=== PATIENT | male | born 1975 | race Caucasian/White ===

== ENCOUNTER 2016-10-28 22:08 | Emergency (ER) | payer OTHER ==
[~2016-10-28] VITALS: Ht 172.7 cm; Wt 82.6 kg
[~2016-10-28 22:08] MED LIST: MOTRIN800 MG PO
[2016-10-28 22:23] VITALS: BP 111/72
[2016-10-28] MEDS ORDERED: IBUPROFEN600 M1 PO (22:48)
--- NOTE | 2016-10-28 23:10 | ED NECK/BACK PAIN COMPLAINT ---
History of Present Illness General Chief Complaint: Lower Extremity Problems Stated Complaint: PT HAS A BACK PAIN Source: patient, old records Exam Limitations: no limitations Vital Signs & Intake/Output Vital Signs & Intake/Output Vital Signs Date Time Temp Pulse Resp B/P B/P Pulse O2 O2 Flow FiO2 Mean Ox Delivery Rate 10/28 2236 99 Room Air 10/28 2222 98.1 79 16 111/72 97 Room Air ED Intake and Output 10/29 0000 10/28 1200 Intake Total Output Total Balance Patient 82.554 kg Weight Weight Reported by Patient Measurement Method Allergies Coded Allergies: NO KNOWN ALLERGIES (UNKNOWN 10/28/16) Reconcile Medications Cyclobenzaprine HCl 10 MG TABLET 1 TAB PO TID SCIATICA Ibuprofen 600 MG TABLET 1 TAB PO TID PAIN CONTROL (Reported) with food Ibuprofen (Motrin) 800 MG TAB 1 TAB PO 4 TIMES/DAY PRN PAIN Oxycodone HCl/Acetaminophen (Percocet 5-325 MG Tablet) 5 MG-325 MG TABLET 1 TAB PO TID SCIATICA Triage Note: 40M C/O R LOW BACK PAIN RADIATES DOWN R LEG. NO CVA TENDERNESS ON ASSESSMENT. 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 TAKING IBUPROFEN 600 WITHOUT RELIEF, LAST DOSE 3 HOURS AGO AND HOT PATCHES X4 DAYS WITHOUT RELIEF. DENIES SYMPTOMS. HAS HX KIDNEY STONES. GIVEN URINE CUP TO PROVIDE SAMPLE Triage Nurses Notes Reviewed? yes HPI: 40M PMH nephrolithiasis presenting with 5 days of severe lower back pain. Patient works in construction, was lifting heavy objects at work, the following morning woke up with severe right sided back pain radiating down right leg. Pain worse with movement. Denies extremity weakness, change in sensation, or paresthesias. Denies saddle paresthesia or incontinence. Went to PCP who prescribed Motrin with no improvement. Patient unable to sleep due to pain. Past History Travel History Traveled to [place] past 21 day No Medical History Any Pertinent Medical History? see below for history Neurological: NONE EENT: NONE Cardiovascular: NONE Respiratory: NONE Gastrointestinal: NONE Hepatic: NONE Renal: kidney stones Musculoskeletal: NONE Psychiatric: NONE Endocrine: NONE Surgical History Surgical History: none Psychosocial History What is your primary language Hungarian Tobacco Use: Refused to answer Family History Hx Contributory? No Review of Systems Review of Systems Constitutional: Reports: no symptoms. Eyes: Reports: no symptoms. Ears, Nose, Throat, Mouth: Reports: no symptoms. Respiratory: Reports: no symptoms. Cardiovascular: Reports: no symptoms. Gastrointestinal/Abdominal: Reports: no symptoms. Musculoskeletal: Reports: see HPI. Skin: Reports: no symptoms. Neurological/Psychological: Reports: no symptoms. All Other Systems: Reviewed and Negative Physical Exam Physical Exam General Appearance: well developed/nourished, mild distress Head: atraumatic Eyes: Bilateral: PERRL, EOMI. Ears, Nose, Throat, Mouth: hearing grossly normal Neck: normal inspection, supple, full range of motion, no midline tenderness Respiratory: normal breath sounds Cardiovascular: regular rate/rhythm Gastrointestinal: soft, non-tender Back: normal inspection, right paraspinal tenderness Extremities: normal range of motion Straight Leg Raising: Right: Pain at ____ degrees (5). Neurologic/Psych: no motor/sensory deficits, awake, alert, oriented x 3, normal mood/affect Skin: intact, normal color, warm/dry Progress Differential Diagnosis: AAA, aortic dissection, C spine injury, carotid dissection, cauda equina syn, herniated disc, myofascial strain, pyelo/UTI, sciatica, spinal cord inj, thoracic outlet syn, T/L spine injury, ureterolithiasis Plan of Care: Orders Procedure Date/time Status URINALYSIS 10/28 2218 Complete Laboratory Tests 10/28/162227: Urinalysis LIGHT H, Urine Color YEL, Urine Clarity CLEAR, Urine pH 6.5, Ur Specific [place] 1.020, Urine Protein TRACE H, Urine Ketones NEG, Urine Nitrite NEG, Urine Bilirubin NEG, Urine Urobilinogen 1.0, Ur Leukocyte Esterase NEG, Ur Microscopic SEDIMENT EXAMINED, Urine RBC 15-25 H, Urine Bacteria RARE H, Urine Hemoglobin LARGE H, Urine Glucose NEG Departure Departure Time of Disposition: 2322 Disposition: HOME OR SELF CARE Condition: Stable Clinical Impression Primary Impression: Right sided sciatica Referrals: FAUSTO RAHMAN APRN (PCP/Family) Departure Forms: Customer Survey General Discharge Information Prescriptions: Current Visit Scripts Cyclobenzaprine HCl 1 TAB PO TID #30 TAB Oxycodone HCl/Acetaminophen (Percocet 5-325 MG Tablet) 1 TAB PO TID #15 TAB
[2016-10-28] MEDS ORDERED: CYCLOBENZAPRINE10 M1 PO (23:26)
[2016-10-28] MEDS ORDERED: PERCOCET 5-3251 EACH PO (23:26)
== END 2016-10-28 23:32 ==
LOC: ERH 22:08
DX: M54.41 Lumbago with sciatica, right side (principal)
CPT/HCPCS: 81001; 96372; J1885